=== PATIENT | female | born 1945 | race Two or more races ===

== ENCOUNTER 2017-10-13 07:15 | Outpatient (CLI) | payer OTHER ==
[~2017-10-13 07:15] MED LIST: LOTREL 10-20 MG1 CAP; TENORMIN50 MG
== END 2017-10-13 07:45 | disposition home or self-care (01) ==
LOC: NUCLEAR 07:15
DX: I11.9 Hypertensive heart disease without heart failure (principal); I49.3 Ventricular premature depolarization

== ENCOUNTER 2018-03-09 07:23 | Outpatient (CLI) | payer OTHER | END 2018-03-09 07:25 | disposition home or self-care (01) | LOC: RAD 07:23 | DX: M25.561 Pain in right knee (principal) ==

== ENCOUNTER → 2018-03-09 | Outpatient (CLI) | payer OTHER | END | disposition home or self-care (01) | LOC: NUCLEAR 08:26 | DX: M81.0 Age-related osteoporosis without current pathological fracture (principal) ==

== ENCOUNTER 2018-09-22 07:36 | Outpatient (CLI) | payer OTHER | END 2018-09-22 17:00 | disposition home or self-care (01) | LOC: RAD 07:36 | DX: M12.9 Arthropathy, unspecified (principal); M19.90 Unspecified osteoarthritis, unspecified site ==

== ENCOUNTER → 2018-09-23 | Outpatient (CLI) | payer OTHER | END | disposition home or self-care (01) | LOC: TOM 06:35 | DX: R55 Syncope and collapse (principal); R51 Headache; H54.7 Unspecified visual loss ==

== ENCOUNTER → 2018-10-12 | Outpatient (CLI) | payer OTHER | END | disposition home or self-care (01) | LOC: MAMO-SONO 10-05 07:02 | DX: Z12.31 Encounter for screening mammogram for malignant neoplasm of breast (principal); Z87.898 Personal history of other specified conditions; N60.11 Diffuse cystic mastopathy of right breast; N60.12 Diffuse cystic mastopathy of left breast ==

== ENCOUNTER 2019-05-04 07:08 | Outpatient (CLI) | payer OTHER | END 2019-05-04 07:14 | disposition home or self-care (01) | LOC: SONOGRAMA 07:08 | DX: R10.84 Generalized abdominal pain (principal) ==

== ENCOUNTER 2020-05-01 07:12 | Outpatient (CLI) | payer OTHER | END 2020-05-01 07:20 | disposition home or self-care (01) | LOC: MAMO-SONO 07:12 | PROVIDERS: ATTEND Internal Medicine Cardiovascular Disease | DX: D24.2 Benign neoplasm of left breast (principal); D24.1 Benign neoplasm of right breast; R92.2 Inconclusive mammogram; N64.59 Other signs and symptoms in breast ==

== ENCOUNTER → 2020-05-05 | Outpatient (CLI) | payer OTHER | END | disposition home or self-care (01) | LOC: OFIC 805 14:30 | PROVIDERS: ATTEND Otolaryngology Otology & Neurotology | DX: J02.8 Acute pharyngitis due to other specified organisms (principal); H92.02 Otalgia, left ear; G44.89 Other headache syndrome ==

== ENCOUNTER 2021-03-22 05:42 | Day surgery (SDC) | payer OTHER | END 2021-03-22 09:25 | disposition home or self-care (01) | LOC: AMB-ENDOS 05:42 | PROVIDERS: ATTEND Surgery | DX: D12.2 Benign neoplasm of ascending colon (principal); Z20.822 Contact with and (suspected) exposure to COVID-19 ==

== ENCOUNTER 2022-08-19 07:06 | Outpatient (CLI) | payer OTHER | END 2022-08-19 07:20 | disposition home or self-care (01) | LOC: SONOGRAMA 07:06 | PROVIDERS: ATTEND Internal Medicine Cardiovascular Disease | DX: R10.84 Generalized abdominal pain (principal) ==

== ENCOUNTER 2023-05-13 07:04 | Outpatient (CLI) | payer OTHER | END 2023-05-13 07:12 | disposition home or self-care (01) | LOC: MAMO-SONO 07:04 | PROVIDERS: ATTEND Internal Medicine Cardiovascular Disease | DX: Z12.31 Encounter for screening mammogram for malignant neoplasm of breast (principal); N60.12 Diffuse cystic mastopathy of left breast ==

== ENCOUNTER 2024-05-14 07:05 | Outpatient (CLI) | payer OTHER | END 2024-05-14 07:10 | disposition home or self-care (01) | LOC: SONOGRAMA 07:05 | PROVIDERS: ATTEND Internal Medicine Cardiovascular Disease | DX: R10.9 Unspecified abdominal pain (principal) ==

== ENCOUNTER 2024-06-21 07:09 | Outpatient (CLI) | payer OTHER | END 2024-06-21 07:12 | disposition home or self-care (01) | LOC: MAMO-SONO 07:09 | PROVIDERS: ATTEND Internal Medicine Cardiovascular Disease | DX: N60.11 Diffuse cystic mastopathy of right breast (principal); N60.12 Diffuse cystic mastopathy of left breast; Z12.31 Encounter for screening mammogram for malignant neoplasm of breast ==

== ENCOUNTER 2025-06-22 07:05 | Outpatient (CLI) | payer OTHER | END 2025-06-22 07:07 | disposition home or self-care (01) | LOC: MAMO-SONO 07:05 | PROVIDERS: ATTEND Internal Medicine Cardiovascular Disease | DX: N60.11 Diffuse cystic mastopathy of right breast (principal); N60.12 Diffuse cystic mastopathy of left breast; R10.9 Unspecified abdominal pain; Z12.31 Encounter for screening mammogram for malignant neoplasm of breast ==